=== PATIENT | male | born 1950 | race Caucasian/White ===

== ENCOUNTER 2018-09-27 03:32 | Emergency (ER) | payer MEDICARE ==
[~2018-09-27] VITALS: Ht 185.4 cm; Wt 88.5 kg
[2018-09-27] MEDS ORDERED: FLOMAX0.4 MG PO (03:41)
[2018-09-27] MEDS ORDERED: LISINOPRIL10 MG PO (03:42)
[2018-09-27] MEDS ORDERED: NORVASC5 MG PO (03:42)
[2018-09-27] MEDS ORDERED: FLEXERIL PO (05:15)
[2018-09-27] MEDS ORDERED: LIORESAL 10 MG10 MG PO (05:15)
[2018-09-27] MEDS ORDERED: MEDROLDOSEPACK PO (05:15)
[2018-09-27 05:20] VITALS: BP 154/99
== END 2018-09-27 05:21 | disposition home or self-care (01) ==
LOC: M.ERS 03:32
DX: M54.16 Radiculopathy, lumbar region (principal)

== ENCOUNTER → 2018-12-26 | Outpatient (CLI) | payer MEDICARE ==
[~2018-12-26] MED LIST: FLEXERIL PO; FLOMAX0.4 MG PO; LIORESAL 10 MG10 MG PO; LISINOPRIL10 MG PO; MEDROLDOSEPACK PO; NORVASC5 MG PO
== END ==
LOC: M.MRI 07:01
DX: M19.011 Primary osteoarthritis, right shoulder (principal); L57.0 Actinic keratosis; G89.29 Other chronic pain; Z79.899 Other long term (current) drug therapy; Z72.89 Other problems related to lifestyle

== ENCOUNTER → 2019-06-27 | Outpatient (CLI) | payer OTHER | LOC: M.CT 08:30 | DX: Z13.6 Encounter for screening for cardiovascular disorders (principal) ==

== ENCOUNTER → 2019-07-21 | Outpatient (CLI) | payer MEDICARE ==
--- NOTE | 2019-07-21 17:36 | CARDNUC ---
[place] [address] CARDIAC NUCLEAR IMAGING REPORT Name: VIPIN DOSHI Room: [facility]#: [id number] Admission: 07/21/19 Attend Phys: Buster Lee, Discharge: Date of : 48 Date of Service: 07/21/19 1735 Report #: [id number] THIS REPORT FOR: cc: Catracho Chen Vincent R. DO Liston,Antonio Gates MD [facility] ~ APPROVED REPORT Study performed: 07/21/2019 09:48:16 Exam: Nuclear Stress Test Indication: elevated calcium score Patient Location: Out-Patient Stress Tech: Cathy Napier Stress Nurse: Michelle Rothman RN Ht: 5 ft 11 in Wt: 194 lbs BSA: 2.08 m2 BMI: 27.05 Medical History Medical History: CAD non obstructive, HTN Medications: amlodipine, lisinopril Allergies: No known drug allergies Cardiac Risk Factors: age,, HTN, Tobacco History (Former), FHX of CAD Exercise History: Physically active Stress Test Details Stress Test: Exercise stress testing was performed using a Ozzy protocol. HR Resting HR: 62 bpm Max Heart Rate (APMHR): 150 bpm Max HR Achieved: 158 bpm Target HR (85% APMHR): 127 bpm % of APMHR: 105 BP Resting BP: 139/91 mmHg Max BP: 225/104 mmHg ECG Resting ECG: Sinus Rhythm Stress ECG: Sinus Tachycardia ST Change: None Arrhythmia: [place] [address] CARDIAC NUCLEAR IMAGING REPORT Name: VIPIN DOSHI Room: [facility]#: [id number] Admission: 07/21/19 Attend Phys: Buster Lee, Discharge: Date of : 48 Date of Service: 07/21/19 1735 Report #: [id number] Recovery ECG: Sinus Rhythm Recovery ST Change: None Recovery Arrhythmia: None Clinical Reason for Termination: Maximal effort, Fatigue Exercise duration: 8 min 25 sec Exercise capacity: 10.16 METs Overall Exercise Capacity for Age: Superior Functional Aerobic Impairment 104% The patient tolerated standard Ozzy protocol exercise without significant cardiac symptoms. Stress ECG Conclusion The baseline 12-lead EKG shows sinus rhythm with no significant ST segment or T wave abnormality. EKGs obtained during and post exercise showed sinus rhythm and sinus tachycardia with no significant ST segment or T wave changes when compared to baseline. There were no stress-induced arrhythmias. NM EXAM: Myocardial Perfusion REST/STRESS Resting Data Rest SPECT myocardial perfusion imaging was performed in supine position 30 minutes following the intravenous injection of 11.0 mCi of Tc-99m Sestamibi. Time of rest injection: 08:25 The images were gated to evaluate regional wall motion and calculate left ventricular ejection fraction. Administration Route: IV Administration Site: Right AC Exercise Stress At peak stress, the patient was injected intravenously with 35.0mCi of Tc-99m Sestamibi. Time of stress injection: 1000 Administration Route: IV Administration Site: Right AC Heart Rate at time of stress injection: 156 bpm. Patient continued to exercise for 1 minute(s). Gated Stress SPECT was performed 30 minutes after stress injection. The images were gated to evaluate regional wall motion and calculate left ventricular ejection fraction. [place] [address] CARDIAC NUCLEAR IMAGING REPORT Name: VIPIN DOSHI Room: [facility]#: [id number] Admission: 07/21/19 Attend Phys: Buster Lee, Discharge: Date of : 48 Date of Service: 07/21/19 1735 Report #: [id number] Study Quality Study: Good Artifact: Mild Diaphragmatic artifact Study Data At rest, the left ventricular ejection fraction was 55%.. Post stress, the left ventricular ejection was 65%.. TID = 0.72. Perfusion Perfusion images obtained in the supine position at rest and post exercise stress showed mild photopenia in the inferior wall that resolves completely with post stress prone imaging consistent with diaphragmatic attenuation artifact. No other significant fixed or reversible defects were identified. Wall Motion Normal left ventricular wall motion. Nuclear Conclusion ECG Findings: negative for ischemia Clinical Findings: negative for ischemia Nuclear Findings: negative for ischemia Exercise Capacity: normal Left Ventricular Function: normal Risk Study: low Myocardial perfusion images show no defect to suggest infarct or ischemia. Left ventricular systolic function appears normal on gated studies. This is a low risk study. <Conclusion> The baseline 12-lead EKG shows sinus rhythm with no significant ST segment or T wave abnormality. EKGs obtained during and post exercise showed sinus rhythm and sinus tachycardia with no significant ST segment or T wave changes when compared to baseline. There were no stress-induced arrhythmias. <ELECTRONICALLY SIGNED> By: Antonio Esteban MD, FACC 07/21/19 1735 1735 1735 Antonio Esteban MD, FACC /INF
== END ==
LOC: M.NUC 07-12 12:19
DX: I25.10 Atherosclerotic heart disease of native coronary artery without angina pectoris (principal); I10 Essential (primary) hypertension; Z79.899 Other long term (current) drug therapy

== ENCOUNTER 2019-07-26 21:52 | Emergency (ER) | payer MEDICARE ==
[~2019-07-26] VITALS: Ht 180.3 cm; Wt 81.7 kg
[2019-07-26 23:20] LABS: ABSOLUTE EOSINOPHILS 0.2 thou/uL (0.0-0.7); ABSOLUTE LYMPHOCYTES 1.5 thou/uL (0.8-5.3); ABSOLUTE MONOCYTES 0.7 thou/uL (0.0-1.2); ABSOLUTE NEUTROPHILS 6.3 thou/uL (1.6-8.1); BASOPHILS 0.5 %; EOSINOPHILS 1.9 %; HEMATOCRIT 41.5 % (42.0-52.0); HEMOGLOBIN 14.1 gm/dL (14.0-18.0); LYMPHOCYTES 17.2 %; MCH 32.1 pg (26.0-34.0); MCHC 34.1 g/dL (28.0-37.0); MCV 94.2 fL (80.0-100.0); MPV 8.3 fl. (7.2-11.1); NUCLEATED RBCS 0 /100WBC; PLATELET COUNT* 218 thou/uL (150-400); POLYS 72.4 %; RDW-CV 13.8 % (10.5-14.5); WBC 8.7 thou/uL (4.0-11.0)
[2019-07-26 23:27] LABS: CALCIUM 9.2 mg/dL (8.5-10.1); CREATININE 1.2 mg/dL (0.6-1.3); POTASSIUM 4.1 mmol/L (3.5-5.1)
[2019-07-27 00:21] VITALS: BP 118/76
== END 2019-07-27 00:21 | disposition home or self-care (01) ==
LOC: M.ERS 21:52
PROVIDERS: Emergency Medicine
DX: R31.9 Hematuria, unspecified (principal); I10 Essential (primary) hypertension; N40.0 Benign prostatic hyperplasia without lower urinary tract symptoms; Z86.19 Personal history of other infectious and parasitic diseases

== ENCOUNTER → 2019-10-10 | Outpatient (CLI) | payer MEDICARE | LOC: M.RAD 08:07 | DX: M17.11 Unilateral primary osteoarthritis, right knee (principal); M25.761 Osteophyte, right knee ==